=== PATIENT | female | born 1975 | race Caucasian/White ===

== ENCOUNTER 2019-06-14 14:58 | Emergency (ER) | payer MEDICAID ==
[~2019-06-14] VITALS: Ht 160 cm; Wt 75.0 kg
[2019-06-14] MEDS ORDERED: MORPHINE SULFATE 4 MG/ML SYRINGE IVP ONE (15:30)
[2019-06-14] MEDS ORDERED: SODIUM CHLORIDE 0.9% 1,000 ML IV ONE (15:30)
[2019-06-14 16:16] LABS: BASOPHILS % (AUTO) 0.6 % (0.0-2.0); EOSINOPHILS % (AUTO) 1.6 % (1.0-6.0); HEMATOCRIT 36.4 % (36-46); HEMOGLOBIN 12.6 g/dL (12.0-16.0); LYMPHOCYTES # (AUTO) 1.1 K/uL (1.0-4.8); LYMPHOCYTES % (AUTO) 24.8 % (22.0-44.0); MEAN CORPUSCULAR HEMOGLOBIN 31.9 pg (26.0-34.0); MEAN CORPUSCULAR HGB CONC 34.5 G/dL (31.0-37.0); MEAN CORPUSCULAR VOLUME 93 fL (80-100); MONOCYTES # (AUTO) 0.3 K/uL (0.1-1.0); PLATELET COUNT (AUTO) 175 K/uL (150-450); RED BLOOD CELL COUNT(AUTO) 3.94 MIL/uL (4.00-5.20); RED CELL DISTRIBUTION WIDTH 12.6 % (11.5-14.5)
[2019-06-14 16:26] LABS: ANION GAP 5 mmol/L (8-16); CALCIUM, TOTAL 8.6 mg/dL (8.8-10.5); CARBON DIOXIDE 27 mmol/L (22-29); CHLORIDE 104 mmol/L (98-107); CREATININE 0.72 mg/dL (0.60-1.30); GLOMERULAR FILTR. RATE CALC > 60 mL/min (>60); GLUCOSE,RANDOM 114 mg/dL (70-110); POTASSIUM 3.3 mmol/L (3.5-5.1); SODIUM SERUM 136 mmol/L (136-145); UREA NITROGEN, BLOOD 10 mg/dL (7-18)
[2019-06-14 16:49] LABS: ALANINE AMINOTRANSFERASE 18 U/L (12-78); ALBUMIN 3.7 g/dL (3.4-5.0); ALKALINE PHOSPHATASE 68 U/L (46-116); ASPARTATE AMINOTRANSFERASE 16 U/L (15-37); BILIRUBIN,TOTAL 0.3 mg/dL (0.1-1.0); HCG,QUANTITATIVE < 1 mIU/mL (0-6); LIPASE 72 U/L (73-393)
[2019-06-14] MEDS ORDERED: IOVERSOL 350 MG/ML 100 ML VIAL ONE (18:13)
[2019-06-14] MEDS ORDERED: SODIUM CHLORIDE 0.9% 100 ML ONE (18:13)
[2019-06-14 19:32] VITALS: BP 118/67
== END 2019-06-14 19:37 | disposition home or self-care (01) ==
LOC: EMS 15:02
DX: K42.9 Umbilical hernia without obstruction or gangrene (principal)
CPT/HCPCS: 36415; 74177; 80053; 83690; 84702; 85025; 96374; 99285; J2270; J7030; J7050; Q9967